=== PATIENT | male | born 1970 | race Caucasian/White ===

== ENCOUNTER 2018-05-27 13:41 | Inpatient (IN) | payer OTHER ==
[~2018-05-27] VITALS: Ht 185.4 cm; Wt 121.6 kg
--- NOTE | ~2018-05-27 | 2DMMODE ---
[facility] [address] [employer] [place] [address] 2 D/M-MODE ECHOCARDIOGRAM Name: SHAYNACAMILA Room #: 456-P ADM IN .R.#: [id number] Admission: 05/27/18 Attend Phys: Chris Lui MD Discharge: Date of : 68 Date of Service: 05/28/18 1159 Report #: [id number] THIS REPORT FOR: //name// APPROVED REPORT Study performed: 05/28/2018 09:56:12 EXAM: Comprehensive 2D, Doppler, and color-flow Echocardiogram Patient Location: Echo lab Room #: [facility] Status: routine BSA: 2.44 HR: 75 bpm BP: 143/97 mmHg Other Information Study Quality: Adequate Indications Edema 2D Dimensions RVDd: 35.62 mm LVEF(%): 53.52 (>50%) IVSd: 14.16 (7-11mm) LVOT Diam: 23.69 (18-24mm) LVDd: 54.08 mm PWd: 12.96 (7-11mm) LVDs: 39.00 (25-40mm) Aortic Root: 34.82 mm IVC: 17.00 mm Winter's LVEF: 53.52 % Volumes Left Atrial Volume (Systole) Single Plane 4CH: 33.35 mL Single Plane 2CH: 84.09 mL LA ESV Index: 26.00 mL/m2 Aortic Valve AoV Peak Jens.: 1.30 m/s AO Peak Gr.: 6.74 mmHg LVOT Max P.06 mmHg LVOT Max V: 1.01 m/s JACK Vmax: 3.42 cm2 Mitral Valve E/A Ratio: 1.4 MV Decel. Time: 195.11 ms MV E Max Jens.: 0.80 m/s [facility] [address] [place] [address] 2 D/M-MODE ECHOCARDIOGRAM Name: CAMILA CORRAL Room #: 456-P [facility] IN ..#: [id number] Admission: 05/27/18 Attend Phys: Chris Lui MD Discharge: Date of : 68 Date of Service: 05/28/18 1159 Report #: [id number] MV A Jens.: 0.58 m/s MV PHT: 56.58 ms IVRT: 101.50 ms Pulmonary Valve PV Peak Jens.: 0.93 m/s PV Peak Gr.: 3.43 mmHg Pulmonary Vein P Vein S: 0.36 m/s P Vein A: 0.20 m/s P Vein D: 0.32 m/s P Vein A Dur.: 103.8 msec P Vein S/D Ratio: 1.13 Tricuspid Valve RAP Estimate: 5.00 mmHg Left Ventricle The left ventricle is normal size. Mild concentric left ventricular hypertrophy. Left ventricular systolic function is normal. LVEF is 50-55%. The left ventricular diastolic function is normal. Right Ventricle The right ventricle is normal size. The right ventricular systolic function is normal. Atria The left atrium size is normal. The right atrium size is normal. Aortic Valve The aortic valve is normal in structure. Trace aortic regurgitation. There is no aortic valvular stenosis. Mitral Valve The mitral valve is normal in structure. Mild mitral regurgitation. No evidence of mitral valve stenosis. Tricuspid Valve The tricuspid valve is normal in structure. Trace tricuspid regurgitation. Unable to assess PA pressure. Pulmonic Valve The pulmonary valve is normal in structure. Trace pulmonic regurgitation. Great Vessels The aortic root is normal in size. IVC is normal in size and [facility] [address] [place] [address] 2 D/M-MODE ECHOCARDIOGRAM Name: CAMILA CORRAL Room #: 456-P [facility] IN ..#: [id number] Admission: 05/27/18 Attend Phys: Chris Lui MD Discharge: Date of : 68 Date of Service: 05/28/18 1159 Report #: [id number] collapses >50% with inspiration. Pericardium There is no pericardial effusion. <Conclusion> The left ventricle is normal size. LVEF is 50-55%. The aortic valve is normal in structure. Trace aortic regurgitation. The mitral valve is normal in structure. Mild mitral regurgitation. The tricuspid valve is normal in structure. Trace tricuspid regurgitation. Unable to assess PA pressure. The pulmonary valve is normal in structure. Trace pulmonic regurgitation. The aortic root is normal in size. There is no pericardial effusion. <ELECTRONICALLY SIGNED> By: Octavio Cunningham MD 05/28/18 1159 1159 1159 Octavio Cunningham MD /INF
[2018-05-27 13:50] VITALS: BP 144/106
[2018-05-27] MEDS ORDERED: VENTOLIN HFA 1818 GM INH (14:11)
[2018-05-27] MEDS ORDERED: SINGULAIR 10 MG10 M1 PO (14:11)
[2018-05-27 14:51] LABS: ABSOLUTE NEUTROPHILS 3.3 thou/uL (1.4-8.2); BASOPHILS 0.3 % (0.0-2.0); EOSINOPHILS 4.1 % (0.0-3.0); HEMATOCRIT 37.5 % (42.0-52.0); HEMOGLOBIN 12.6 gm/dL (14.0-18.0); LYMPHOCYTES 24.2 % (24.0-44.0); MCH 29.7 pg (26.0-34.0); MCHC 33.5 g/dL (28.0-37.0); MCV 88.8 fL (80.0-100.0); MONOCYTES 7.6 % (1.0-8.0); PLATELET COUNT 194 thou/uL (150-400); POLYS 63.8 % (36.0-66.0); RBC 4.22 mil/uL (4.50-6.00); RDW 13.7 % (10.5-14.5); WBC 5.2 thou/uL (4.0-11.0)
[2018-05-27 15:00] LABS: CALCIUM 8.5 mg/dL (8.5-10.1); CREATININE 1.3 mg/dL (0.7-1.3); POTASSIUM 4.2 mmol/L (3.5-5.1)
[2018-05-27 17:43] VITALS: BP 138/93
[2018-05-27 17:59] LABS: ALBUMIN 3.2 g/dL (3.4-5.0)
[2018-05-27 18:10] VITALS: BP 142/111
[2018-05-27 18:15] VITALS: BP 140/91
[2018-05-27 19:39] VITALS: BP 151/85
[2018-05-28 00:29] VITALS: BP 132/85
[2018-05-28 03:53] VITALS: BP 139/88
[2018-05-28 05:50] LABS: HEMATOCRIT 35.9 % (42.0-52.0); HEMOGLOBIN 12.2 gm/dL (14.0-18.0); MCV 88.1 fL (80.0-100.0); RBC 4.08 mil/uL (4.50-6.00)
[2018-05-28 06:06] LABS: CALCIUM 8.1 mg/dL (8.5-10.1); POTASSIUM 4.5 mmol/L (3.5-5.1)
[2018-05-28 08:00] VITALS: BP 143/97
[2018-05-28 12:25] LABS: AMP/METHAMP Negative (Negative); BARBITURATES Negative (Negative); BENZODIAZEPINES Negative (Negative); COCAINE Negative (Negative); METHADONE Negative (Negative); OPIATES POSITIVE (Negative); PCP Negative (Negative)
[2018-05-28 16:00] VITALS: BP 139/90
[2018-05-28 19:06] LABS: SOURCE KNEE JOINT; TOTAL VOLUME 60 mL
[2018-05-28 19:07] LABS: CLARITY HAZY; COLOR YELLOW
[2018-05-28 19:14] LABS: BF NUCLEATED CELLS 1529; BF RBC 738
[2018-05-28 19:15] LABS: BF CRYSTALS No Crystals seen
[2018-05-28 19:33] VITALS: BP 148/108
[2018-05-28 20:23] LABS: BF NEUTROPHILS 24
[2018-05-28 20:24] LABS: BF MACROPHAGE 0
[2018-05-29 03:09] VITALS: BP 138/81
[2018-05-29 05:25] LABS: CALCIUM 9.1 mg/dL (8.5-10.1); CREATININE 0.9 mg/dL (0.7-1.3); POTASSIUM 4.4 mmol/L (3.5-5.1)
[2018-05-29 05:58] LABS: HEMOGLOBIN 13.8 gm/dL (14.0-18.0); MCH 29.4 pg (26.0-34.0); MCHC 33.7 g/dL (28.0-37.0); MCV 87.1 fL (80.0-100.0); RBC 4.7 mil/uL (4.50-6.00); RDW 13.7 % (10.5-14.5); WBC 6.4 thou/uL (4.0-11.0)
[2018-05-29 08:00] VITALS: BP 137/86
[2018-05-29 11:51] VITALS: BP 137/86
[2018-05-29] MEDS ORDERED: LASIX 20 MG TAB20 MG PO (13:32)
[2018-05-29] MEDS ORDERED: TRAMADOL 50 MG50 MG PO (13:54)
== END 2018-05-29 14:30 | disposition home or self-care (01) | DRG 564 ==
LOC: ER 13:41 → EROBS 16:50 → 4W 16:50 → ENTRNSPT 05-29 14:01 → EDTRNSPTSTS 05-29 14:04 → 4W 05-29 14:30
PROVIDERS: Emergency Medicine; Hospitalist; Orthopaedic Surgery
PROC: 0S9C3ZZ Drainage of Right Knee Joint, Percutaneous Approach (ICD-10-PCS; principal; 2018-05-28)
DX: M25.461 Effusion, right knee (principal); E43 Unspecified severe protein-calorie malnutrition; N17.0 Acute kidney failure with tubular necrosis; G89.18 Other acute postprocedural pain; J45.909 Unspecified asthma, uncomplicated; F41.9 Anxiety disorder, unspecified; F17.210 Nicotine dependence, cigarettes, uncomplicated; Z68.35 Body mass index [BMI] 35.0-35.9, adult; Z79.899 Other long term (current) drug therapy; Z88.0 Allergy status to penicillin
CPT/HCPCS: 10047

== ENCOUNTER → 2021-09-21 | Emergency (ER) | payer OTHER ==
[~2021-09-21] VITALS: Ht 185.4 cm; Wt 113.4 kg
[~2021-09-21] MED LIST: LASIX 20 MG TAB20 MG PO; NORVASC5 MG PO; SINGULAIR 10 MG10 M1 PO; TRAMADOL 50 MG50 MG PO; VENTOLIN HFA 1818 GM INH
[2021-09-21 12:52] LABS: ABSOLUTE NEUTROPHILS 4.6 thou/uL (1.4-8.2); BASOPHILS 0.7 % (0.0-2.0); EOSINOPHILS 4.8 % (0.0-3.0); HEMATOCRIT 44.1 % (42.0-52.0); HEMOGLOBIN 14.9 gm/dL (14.0-18.0); LYMPHOCYTES 19.1 % (24.0-44.0); MCH 29.9 pg (26.0-34.0); MCHC 33.7 g/dL (28.0-37.0); MCV 88.8 fL (80.0-100.0); MONOCYTES 7.8 % (1.0-8.0); PLATELET COUNT 257 thou/uL (150-400); POLYS 67.6 % (36.0-66.0); RBC 4.97 mil/uL (4.50-6.00); RDW 14.8 % (10.5-14.5); WBC 6.9 thou/uL (4.0-11.0)
[2021-09-21 13:01] LABS: CALCIUM 8.9 mg/dL (8.5-10.1); CREATININE 1.1 mg/dL (0.7-1.3); POTASSIUM 4.4 mmol/L (3.5-5.1)
[2021-09-21 13:22] VITALS: BP 165/109
--- NOTE | 2021-09-22 08:28 | EKG ---
[place] [address] [facility] [employer] [place] [address] ELECTROCARDIOGRAM REPORT Name: CAMILA CORRAL Room #: REG VIVIANA Mayo#: [id number] Admission: 09/21/21 Attend Phys: Discharge: Date of : 68 Report #: [id number] [facility] ED Test Date: 2021-09-21 Test Time: 12:30:22 Pat Name: CAMILA CORRAL Department: Room: Gender: Production Corrugator: : 1970 Requested By: Tk Rich Order Number: [id number] MD: Graeme Sellers Measurements Intervals [place] Rate: 88 P: 27 VT: 133 QRS: 22 QRSD: 88 T: 38 QT: 349 QTc: 423 Interpretive Statements Sinus rhythm normal tracing No previous ECG available for comparison Electronically Signed On 09-22-2021 8:28:17 CDT by Graeme Sellers [email or web address] <ELECTRONICALLY SIGNED> By: Graeme Sellers MD, [facility] 09/22/21 0828 1230 1230 Graeme Sellers MD, FACC /EPI
--- NOTE | 2021-09-22 08:28 | EKG ---
[address] [place] [address] ELECTROCARDIOGRAM REPORT Name: CAMILA CORRAL Room #: REG VIVIANA Mayo#: [id number] Admission: 09/21/21 Attend Phys: Discharge: Date of : 68 Report #: [id number] [facility] ED Test Date: 2021-09-21 Test Time: 14:17:38 Pat Name: CAMILA CORRAL Department: Room: Gender: M Fundraising Sale Representative: : 1970 Requested By: Tk Rich Order Number: [id number] MD: Graeme Sellers Measurements Intervals [place] Rate: 85 P: 46 VA: 119 QRS: 13 QRSD: 90 T: 46 QT: 367 QTc: 437 Interpretive Statements Sinus rhythm Borderline short VA interval Compared to ECG 09/21/2021 12:30:22 No significant changes Electronically Signed On 09-22-2021 8:28:25 CDT by Graeme Sellers [email or web address] <ELECTRONICALLY SIGNED> By: Graeme Sellers MD, [facility] 09/22/21 0828 1417 1417 Graeme Sellers MD, FACC /EPI
== END ==
LOC: ER 12:18
PROVIDERS: Student in an Organized Health Care Education/Training Program
DX: I10 Essential (primary) hypertension (principal); R07.89 Other chest pain; J45.909 Unspecified asthma, uncomplicated; F41.9 Anxiety disorder, unspecified; Z98.890 Other specified postprocedural states; Z79.51 Long term (current) use of inhaled steroids; Z79.899 Other long term (current) drug therapy; Z88.0 Allergy status to penicillin